=== PATIENT | male | born 1980 | race Caucasian/White ===

== ENCOUNTER 2024-10-30 17:51 | Emergency (ER) | payer OTHER ==
[~2024-10-30] VITALS: Ht 172.7 cm; Wt 99.8 kg
[2024-10-30] MEDS ORDERED: ONDANSETRON 4 MG/2 ML VIAL ONE (18:52)
[2024-10-30] MEDS ORDERED: MORPHINE SULFATE 4 MG/1 ML DISP.SYRIN ONE (18:53)
[2024-10-30 18:58] LABS: BASOPHILS % (AUTO) 0.6 % (0.0-2.0); EOSINOPHILS # (AUTO) 0.1 K/uL (0.0-0.7); EOSINOPHILS % (AUTO) 1.1 % (0.0-7.0); HEMATOCRIT 41.5 % (36.7-47.1); HEMOGLOBIN 14.1 g/dL (12.5-16.3); LYMPHOCYTES # (AUTO) 1.7 K/uL (0.8-4.8); LYMPHOCYTES % (AUTO) 22.9 % (20.5-51.5); MEAN CORPUSCULAR HEMOGLOBIN 30.2 uug (23.8-33.4); MEAN CORPUSCULAR HGB CONC 34 g/dL (32.5-36.3); MEAN CORPUSCULAR VOLUME 88.7 fL (73.0-96.2); MONOCYTES # (AUTO) 0.7 K/uL (0.1-1.30); MONOCYTES % (AUTO) 10.2 % (0.0-11.0); NEUTROPHILS # (AUTO) 4.8 K/uL (1.8-8.9); NEUTROPHILS % (AUTO) 65.2 % (38.5-71.5); PLATELET COUNT (AUTO) 369 K/uL (152-348); RED BLOOD CELL COUNT(AUTO) 4.69 MIL/uL (4.06-5.63); WHITE BLOOD COUNT (AUTO) 7.4 K/uL (3.6-10.2)
[2024-10-30 18:59] LABS: DIFFERENTIAL COMMENT 1
[2024-10-30] MEDS: ONDANSETRON 4 MG/2 ML VIAL IV ONE (18:59)
[2024-10-30] MEDS: MORPHINE SULFATE 4 MG/1 ML DISP.SYRIN IV ONE (18:59)
[2024-10-30 19:18] LABS: CALCIUM 8.8 mg/dL (8.5-10.1); CREATININE 1.5 mg/dL (0.6-1.3); POTASSIUM 3.8 mmol/L (3.5-5.1)
[2024-10-30 19:23] LABS: ALBUMIN 3.4 g/dL (3.4-5.0); BILIRUBIN,TOTAL 0.9 mg/dL (0.2-1.0); MAGNESIUM 1.6 mg/dL (1.8-2.4)
[2024-10-30] MEDS ORDERED: MAGNESIUM OXIDE 400 MG TABLET ONE (20:30)
[2024-10-30] MEDS ORDERED: OXYC5TAB3 PO (20:32)
[2024-10-30] MEDS ORDERED: ONDA4TAB5 PO (20:32)
[2024-10-30 20:34] LABS: *BILIRUBIN,URIN NEGATIVE (NEGATIVE); *BLOOD, URINE 2+ (NEGATIVE); *CLARITY,URINE CLEAR (CLEAR); *COLOR,URINE YELLOW (YELLOW); *KETONES,URINE NEGATIVE (NEGATIVE); *PROTEIN,URINE 2+ (NEGATIVE); *UROBILINOGEN,URINE 0.2 E.U./dl (NORMAL); LEUKOCYTE ESTERASE ,URINE 1+ (NEGATIVE); NITRITE, URINE NEGATIVE (NEGATIVE); PH,URINE 6.5 (5.0-8.0); UGLUCOSE NEGATIVE (NEGATIVE)
[2024-10-30 20:38] LABS: WBC,URINE 0-3 /HPF (0-3)
[2024-10-30] MEDS: MAGNESIUM OXIDE 400 MG TABLET PO ONE (20:43)
[2024-10-30 21:20] VITALS: BP 140/73; O2SAT 98
[2024-10-31 00:51] LABS: C-REACTIVE PROTEIN 2.5 mg/dL (0.00-0.30)
[2024-11-01] MEDS ORDERED: TRAM50TA2 PO (15:03)
== END 2024-10-30 21:22 | disposition home or self-care (01) ==
LOC: ER 17:51 → EDBD 17:51 → ER 21:22
DX: N13.2 Hydronephrosis with renal and ureteral calculous obstruction (principal); I50.9 Heart failure, unspecified; R07.9 Chest pain, unspecified
CPT/HCPCS: 99291; 74176; 96374; 96375; 80053; 81001; 83735; 85025; 86140; 71045; 93005; 87086; J2405; J2270; A4606; A4663